=== PATIENT | female | born 1960 | race American Indian/Alaskan Native ===

== ENCOUNTER 2021-07-15 05:18 | Inpatient (IN) | payer OTHER ==
[2021-07-15] MEDS ORDERED: ASPIRIN 325 MG TAB PO ONE (05:58)
--- NOTE | 2021-07-15 06:28 | XRay Report ---
CHEST 2 VIEWS INDICATION / CLINICAL INFORMATION: chest painX SEVERAL DAYS. FINDINGS: SUPPORT DEVICES: None. HEART / MEDIASTINUM: No significant abnormality. LUNGS / PLEURA: No significant pulmonary or pleural abnormality. No pneumothorax. ADDITIONAL FINDINGS: No significant additional findings. IMPRESSION: 1. No acute findings. Signer Name: Tristian Estrada MD Signed: 07/15/2021 6:24 AM Workstation Name: [id number]
[2021-07-15] MEDS ORDERED: fentaNYL 100 MCG/2 ML INJ IV ONE (07:03)
[2021-07-15] MEDS ORDERED: ONDANSETRON 4 MG/2 ML INJ IV ONE (07:03)
[2021-07-15] MEDS ORDERED: NITROGLYCERIN 2% OINT 1 GM TP ONE (07:03)
--- NOTE | 2021-07-15 07:09 | Emergency Department Report ---
HPI - General Chief Complaint: Chest Pain Time Seen by Provider: 07/15/21 06:53 - [facility] HPI: Waiting Chair 2 The patient is a 61-year-old female present with chief complaint of chest pain. Patient states her pain began yesterday and was initially and intermittent pressing pain but today has become constant. Patient denies shortness of breath but admits to nausea without vomiting and diaphoresis with her chest pain. The patient went to an urgent care facility yesterday and was diagnosed with GERD but states her symptoms persist. Patient currently gets her chest pressure a score of 9/10. Patient states her last stress test occurred over 5 years ago but she has never had a cardiac catheterization ED Past Medical Hx - Past Medical History Previous Medical History?: No Hx Hypertension: Yes Hx Diabetes: Yes Additional medical history: Hypercholesterolemia, hypothyroidism - Surgical History Past Surgical History?: No Additional Surgical History: Thyroidectomy - Family History Family history: no significant - Social History Smoking Status: Former Smoker (None x3 weeks) Substance Use Type: None (Denies illicit drug use) ED Review of Systems ROS: Stated complaint: CHEST PAIN Other details as noted in HPI Constitutional: diaphoresis Eyes: denies: eye pain ENT: denies: throat pain Respiratory: denies: shortness of breath Cardiovascular: chest pain Endocrine: no symptoms reported Gastrointestinal: nausea. denies: vomiting Musculoskeletal: back pain Neurological: denies: headache Physical Exam - Physical Exam Vital Signs: Vital Signs 07/15/21 05:30 Temperature 98.7 F Pulse Rate 101 H Respiratory 18 Rate Blood Pressure 138/70 O2 Sat by Pulse 99 Oximetry Physical Exam: GENERAL: The patient is well-developed well-nourished female sitting in chair not appearing to be in acute distress. [] HEENT: Normocephalic. Atraumatic. Extraocular motions are intact. Patient has moist mucous membranes. NECK: Supple. Trachea midline CHEST/LUNGS: Clear to auscultation. There is no respiratory distress noted. HEART/CARDIOVASCULAR: Regular. There is no tachycardia. There is no gallop rub or murmur. ABDOMEN: Abdomen is soft, nontender. Patient has normal bowel sounds. There is no abdominal distention. SKIN: There is no rash. There is no edema. There is no diaphoresis. NEURO: The patient is awake, alert, and oriented. The patient is cooperative. The patient has no focal neurologic deficits. The patient has normal speech. GCS 15 MUSCULOSKELETAL: There is no evidence of acute injury. ED Course Vital Signs 07/15/21 05:30 Temperature 98.7 F Pulse Rate 101 H Respiratory 18 Rate Blood Pressure 138/70 O2 Sat by Pulse 99 Oximetry - Consultations Consultation #1: 07/15/21 07:46 Cardiology paged 07/15/21 09:18 No call back as of 09:18 ED Medical Decision Making - Lab Data Result diagrams: 07/15/21 06:46 07/15/21 06:46 Laboratory Tests 07/15/21 07/15/21 06:46 06:46 WBC 12.2 H RBC 4.81 Hgb 13.5 Hct 41.0 MCV 85 MCH 28 MCHC 33 RDW 14.1 Plt Count 249 Lymph % (Auto) 19.7 [place] % (Auto) 4.7 Eos % (Auto) 0.2 Baso % (Auto) 0.4 Lymph # (Auto) 2.4 [place] # (Auto) 0.6 Eos # (Auto) 0.0 Baso # (Auto) 0.0 Seg Neutrophils % 75.0 H Seg Neutrophils # 9.1 H Sodium 138 Potassium 3.6 Chloride 96.8 L Carbon Dioxide 25 Anion Gap 20 BUN 6 L Creatinine 0.5 L Estimated GFR > 60 BUN/Creatinine Ratio 12 Glucose 304 H Calcium 9.8 Total Bilirubin 0.40 AST 22 ALT 10 Alkaline Phosphatase 129 Troponin T 0.107 H* Total Protein 7.6 Albumin 4.5 Albumin/Globulin Ratio 1.5 Triglycerides 131 Cholesterol 211 H LDL Cholesterol Direct 155 H HDL Cholesterol 40 Cholesterol/HDL Ratio 5.27 - EKG Data -: EKG Interpreted by Wi EKG shows normal: sinus rhythm Rate: tachycardia - EKG Data When compared to previous EKG there are: previous EKG unavailable Interpretation: other (No ischemic changes seen) - Differential Diagnosis ACS, pericarditis, GERD Critical care attestation.: If time is entered above; I have spent that time in minutes in the direct care of this critically ill patient, excluding procedure time. ED Disposition Clinical Impression: NSTEMI (non-ST elevated myocardial infarction), Chest pain Disposition: ADMITTED INPATIENT Is pt being admited?: Yes Does the pt Need Aspirin: Yes Condition: Serious Instructions: Nonspecific Chest Pain, Adult Time of Disposition: 08:12 (Hospitalist notified (Dr. Sandoval)) Heart Score - HEART Score History: Moderately suspicious EKG: Normal Age: 45-65 Risk factors: > 3 risk factors or hx of atherosclerotic disease Troponin: > 3x normal limit HEART Score: 6 - EKG Read Time Time EKG Completed: 06:09 EKG Read Time: 06:10
[2021-07-15 07:10] LABS: Basophils % (Auto) 0.4 % (0.0-1.8); Eosinophils % (Auto) 0.2 % (0.0-4.3); Hemoglobin 13.5 gm/dl (10.1-14.3); Lymphocytes # (Auto) 2.4 K/mm3 (1.2-5.4); Lymphocytes % (Auto) 19.7 % (13.4-35.0); Mean Corpuscular HGB Conc 33 % (30-34); Mean Corpuscular Volume 85 fl (79-97); Monocytes # (Auto) 0.6 K/mm3 (0.0-0.8); Monocytes % (Auto) 4.7 % (0.0-7.3); Platelet Count 249 K/mm3 (140-440); Red Blood Count 4.81 M/mm3 (3.65-5.03); Red Cell Distribution Width 14.1 % (13.2-15.2)
[2021-07-15 07:36] LABS: Alanine Aminotransferase 10 units/L (7-56); Albumin 4.5 g/dL (3.9-5); BUN/Creatinine Ratio 12; Blood Urea Nitrogen 6 mg/dL (7-17); Calcium 9.8 mg/dL (8.4-10.2); Hemolysis Index 9
[2021-07-15] MEDS ORDERED: HEPARIN 10,000 UNITS/10 ML VIAL IV ONE (07:39)
[2021-07-15] MEDS ORDERED: HEPARIN 10,000 UNITS/10 ML VIAL IV PRN ×2 (07:39→10:00)
[2021-07-15 07:52] LABS: Chol/HDL Ratio 5.27 %; HDL Cholesterol 40 mg/dL (40-59); LDL Cholesterol,Direct 155 mg/dL (50-130)
[2021-07-15] MEDS ORDERED: HEPARIN/ 0.45% NACL DRIP 25,000 UNIT/500 ML BAG IV SCH (08:00)
--- NOTE | 2021-07-15 08:35 | Electrocardiograph Report ---
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
[2021-07-15 09:38] LABS: Hematocrit 40.6 % (30.3-42.9); Hemoglobin 13.6 gm/dl (10.1-14.3)
[2021-07-15 09:39] LABS: INR 0.96 (0.87-1.13)
[2021-07-15 09:40] LABS: Partial Thromboplastin Time 38.8 Sec. (24.2-36.6)
[2021-07-15] MEDS ORDERED: HYDROmorphone 1 MG/1 ML INJ ONE (09:52)
[2021-07-15] MEDS ORDERED: HYDROmorphone 2 MG/1 ML INJ IV SCH (10:00)
[2021-07-15] MEDS ORDERED: NITROGLYCERIN DRIP 50 MG/250 ML BOTTLE IV SCH (10:30)
--- NOTE | 2021-07-15 11:46 | Consultation ---
History of Present Illness - Reason for Consult Consult date: 07/15/21 Critical Care - History of Present Illness 61 y/o female admitted with NSTEMI, found to have 100% occluded circ but also so me other vascular occlusions requiring Vascular surgery consultation. Medications and Allergies Allergies Allergy/AdvReac Type Severity Reaction Status Date / Time No Known Allergies Allergy Verified 07/15/21 05:28 Active Meds: Active Medications Heparin Sodium (Porcine) (Heparin 10,000 Units/10 Ml Vial) 4,000 unit IV Q6H PRN PRN Reason: Anti-Xa Assay<0.1 units/ml Hydromorphone HCl (Hydromorphone 2 Mg/1 Ml Inj) 1 mg IV ONCE@1000 MONICA Stop: 07/15/21 14:00 Last Admin: 07/15/21 10:22 Dose: 1 mg Documented by: Heparin Sodium/Sodium Chloride (Heparin/ 0.45% Nacl-25,000 Unit/500 Ml) 25,000 unit in 500 mls @ 20 mls/hr IV TITRATE MONICA; Protocol Last Admin: 07/15/21 11:20 Dose: 1,000 units/hr, 20 mls/hr Documented by: Nitroglycerin/Dextrose (Tridil Drip 50mg/250ml) 50 mg in 250 mls @ 3 mls/hr IV TITR MONICA Exam - Constitutional Vitals: Temp Pulse Resp BP Pulse Ox 98.7 F 91 H 24 151/70 98 07/15/21 05:30 07/15/21 10:39 07/15/21 10:39 07/15/21 11:01 07/15/21 11:01 Results - Labs CBC & Chem 7: 07/16/21 04:14 07/16/21 04:14 Labs: Abnormal lab results 07/15/21 07/15/21 07/15/21 Range/Units 06:46 06:46 08:41 WBC 12.2 H (4.5-11.0) K/mm3 Seg Neutrophils % 75.0 H (40.0-70.0) % Seg Neutrophils # 9.1 H (1.8-7.7) K/mm3 APTT (24.2-36.6) Sec. Chloride 96.8 L (98-107) mmol/L BUN 6 L (7-17) mg/dL Creatinine 0.5 L (0.6-1.2) mg/dL Glucose 304 H (65-100) mg/dL Troponin T 0.107 H* 0.078 H D (0.00-0.029) ng/mL Cholesterol 211 H (50-199) mg/dL LDL Cholesterol Direct 155 H (50-130) mg/dL 07/15/21 Range/Units 08:41 WBC (4.5-11.0) K/mm3 Seg Neutrophils % (40.0-70.0) % Seg Neutrophils # (1.8-7.7) K/mm3 APTT 38.8 H (24.2-36.6) Sec. Chloride (98-107) mmol/L BUN (7-17) mg/dL Creatinine (0.6-1.2) mg/dL Glucose (65-100) mg/dL Troponin T (0.00-0.029) ng/mL Cholesterol (50-199) mg/dL LDL Cholesterol Direct (50-130) mg/dL Assessment and Plan 61 y/o female with CAD and vascular disease Goal directed therapy Follow up cardiology recs post stent placement Follow up vascular surgery recs.
[2021-07-15] MEDS ORDERED: HEPARIN 10,000 UNITS/10 ML VIAL ONE (12:07)
--- NOTE | 2021-07-15 12:38 | Consultation ---
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 She has a history of hypertension, diabetes and tobacco abuse, which she states she quit 3 weeks ago. There is no prior cardiac history. Yesterday, she developed pain in her substernal area, radiating to the throat and the upper back, and went to the urgent care center where she was initially treated for gastroesophageal reflux. On getting home, symptoms did not subside and continued to get worse, prompting her presentation to the emergency room. ECG in the emergency room was sinus with nonspecific ST changes, no acute ischemic findings. However her troponin levels were elevated at 0.10, trending down to 0.07. Chest x-ray showed a normal-sized cardiac silhouette and clear l ungs. Patient is still in the emergency room during evaluation, comfortable in no acute distress, but reports that she still has ongoing intermittent chest discomfort. Past History Past Medical History: diabetes, hypertension, other (Tobacco abuse) Medications and Allergies Allergies Allergy/AdvReac Type Severity Reaction Status Date / Time No Known Allergies Allergy Verified 07/15/21 05:28 Active Meds: Active Medications Heparin Sodium (Porcine) (Heparin 10,000 Units/10 Ml Vial) 4,000 unit IV Q6H PRN PRN Reason: Anti-Xa Assay<0.1 units/ml Hydromorphone HCl (Hydromorphone 2 Mg/1 Ml Inj) 1 mg IV ONCE@1000 MONICA Stop: 07/15/21 14:00 Last Admin: 07/15/21 10:22 Dose: 1 mg Documented by: Heparin Sodium/Sodium Chloride (Heparin/ 0.45% Nacl-25,000 Unit/500 Ml) 25,000 unit in 500 mls @ 20 mls/hr IV TITRATE MONICA; Protocol Last Admin: 07/15/21 11:20 Dose: 1,000 units/hr, 20 mls/hr Documented by: Nitroglycerin/Dextrose (Tridil Drip 50mg/250ml) 50 mg in 250 mls @ 3 mls/hr IV TITR MONICA Last Admin: 07/15/21 12:03 Dose: 10 mcg/min, 3 mls/hr Documented by: Review of Systems Cardiovascular: chest pain, shortness of breath, no orthopnea, no palpitations, no rapid/irregular heart beat, no edema, no syncope, no lightheadedness Physical Examination Vital Signs Temp Pulse Resp BP Pulse Ox 98.7 F 101 H 18 138/70 99 07/15/21 05:30 07/15/21 05:30 07/15/21 05:30 07/15/21 05:30 07/15/21 05:30 General appearance: no acute distress HEENT: Positive: PERRL Neck: Positive: neck supple Cardiac: Positive: Reg Rate and Rhythm Lungs: Positive: Decreased Breath Sounds Neuro: Positive: Grossly Intact Abdomen: Positive: Soft Female genitourinary: deferred Skin: Positive: Clear Extremities: Absent: edema Results 07/15/21 08:41 07/15/21 06:46 Cardiac Enzymes 07/15/21 Range/Units 06:46 AST 22 (5-40) units/L Coagulation 07/15/21 Range/Units 08:41 PT 13.3 (12.2-14.9) Sec. INR 0.96 (0.87-1.13) APTT 38.8 H (24.2-36.6) Sec. Lipids 07/15/21 Range/Units 06:46 Triglycerides 131 (2-149) mg/dL Cholesterol 211 H (50-199) mg/dL HDL Cholesterol 40 (40-59) mg/dL Cholesterol/HDL Ratio 5.27 % CBC 07/15/21 07/15/21 Range/Units 06:46 08:41 WBC 12.2 H (4.5-11.0) K/mm3 RBC 4.81 (3.65-5.03) M/mm3 Hgb 13.5 13.6 (10.1-14.3) gm/dl Hct 41.0 40.6 (30.3-42.9) % Plt Count 249 235 (140-440) K/mm3 Lymph # (Auto) 2.4 (1.2-5.4) K/mm3 [place] # (Auto) 0.6 (0.0-0.8) K/mm3 Eos # (Auto) 0.0 (0.0-0.4) K/mm3 Baso # (Auto) 0.0 (0.0-0.1) K/mm3 Comprehensive Metabolic Panel 07/15/21 Range/Units 06:46 Sodium 138 (137-145) mmol/L Potassium 3.6 (3.6-5.0) mmol/L Chloride 96.8 L (98-107) mmol/L Carbon Dioxide 25 (22-30) mmol/L BUN 6 L (7-17) mg/dL Creatinine 0.5 L (0.6-1.2) mg/dL Glucose 304 H (65-100) mg/dL Calcium 9.8 (8.4-10.2) mg/dL AST 22 (5-40) units/L ALT 10 (7-56) units/L Alkaline Phosphatase 129 (35-129) units/L Total Protein 7.6 (6.3-8.2) g/dL Albumin 4.5 (3.9-5) g/dL EKG interpretations - Telemetry EKG Rhythm: Sinus Tachycardia (With nonspecific ST changes) Assessment and Plan - Patient Problems (1) Acute coronary syndrome Current Visit: Yes Status: Acute Plan to address problem: Patient with multiple coronary risk factors, presents with chest pain and elevated troponin levels, suggestive of acute coronary syndrome. She was started on intravenous heparin in the emergency room, treated with aspirin, we will add intravenous nitroglycerin, beta-blockers and statin. Due to recurrent and ongoing chest pain in the hospital, we will proceed with early diagnostic coronary angiography. Risks and benefits of diagnostic coronary geography discussed with the patient and she consents to proceed.
[2021-07-15] MEDS ORDERED: SODIUM CHLORIDE 0.9% 500 ML 500 ML ONE (12:41)
[2021-07-15] MEDS: HEPARIN/NS 5000 UNIT/500ML 1,000 ML IR ONE ×2 (13:06→13:21)
[2021-07-15] MEDS: NITROGLYCERIN SYRINGE 3 ML ONE ×2 (13:07→13:21)
[2021-07-15] MEDS: VERAPAMIL 5 MG/2 ML INJ ONE ×2 (13:08→13:21)
[2021-07-15] MEDS: LIDOCAINE (2%) 20 MG/1 ML VIAL 20 ML MDV INFILTRATI ONE ×2 (13:20→13:26)
[2021-07-15] MEDS ORDERED: MIDAZOLAM 2 MG/2 ML INJ ONE (13:29)
[2021-07-15] MEDS ORDERED: TIROFIBAN/NS 12,500 MCG/250 ML BAG IV ONE (13:33)
[2021-07-15] MEDS ORDERED: HEPARIN/NS 5000 UNIT/500ML 500 ML IR ONE (13:35)
[2021-07-15] MEDS ORDERED: TICAGRELOR 90 MG TAB ONE (13:57)
[2021-07-15] MEDS ORDERED: ALUM-MAG HYDROXIDE-SIMETHICONE 200-200-20MG/5ML ORAL LIQD 30 ML ONE (13:58)
[2021-07-15] MEDS ORDERED: DEXTROSE 50% IN WATER (25GM) 50 ML SYRINGE IV PRN (14:00)
[2021-07-15] MEDS ORDERED: ACETAMINOPHEN 325 MG TAB PO PRN (14:00)
[2021-07-15] MEDS ORDERED: HEPARIN 5,000 UNIT/1 ML VIAL SUB-Q SCH (14:00)
--- NOTE | 2021-07-15 14:27 | Cardiac Catherization Report ---
DATE OF SERVICE: 07/15/2021 REASON FOR PROCEDURE: The patient is a 61-year-old woman with hypertension, diabetes and tobacco abuse who presented with chest pain and elevated troponin levels consistent with a non-ST elevation myocardial infarction. Due to recurrent chest pain in the Emergency Room, we recommended early and immediate cardiac catheterization. Risks and benefits were discussed with the patient and she consented to proceed. PROCEDURES: 1. Left heart catheterization. 2. Selective left and right coronary angiography. 3. Angioplasty and stenting of the mid circumflex artery. 4. Sedation time start 1319, and end 1354. DESCRIPTION OF PROCEDURE: The patient was prepped and draped in a sterile fashion after informed consent. An initial entry into the right radial artery was aborted. We could not advance the guidewire from the right subclavian into the brachiocephalic trunk. We then turned our attention to the right femoral artery. A 6-Czech sheath was inserted into right femoral artery without difficulty. Selective left and right coronary angiography was performed using #3.5 left Jl and #4 right Jl. Angiograms were reviewed. CORONARY ANGIOGRAPHY: Left main coronary artery was free of significant disease. Left anterior descending artery and its diagonal branches contained mild luminal irregularities. Circumflex artery contained a 20% proximal stenosis. Following the mid obtuse marginal branch, the AV groove circumflex was completely occluded. This was the infarct related lesion, consistent with an acute or subacute occlusion. The right coronary artery was dominant, and contained mild luminal irregularities in its mid segment. CORONARY ANGIOPLASTY: We commenced coronary intervention. We chose a 3.5 XB guiding catheter and advanced to the left coronary ostium. A 0.014 inch Loader Operator 50 guidewire was then introduced into the circumflex, successfully across the lesional segment. Following wire placement, the vessel was predilated using a 3.0 mm balloon catheter. We then deployed a 3.5 x 22 mm drug-eluting stent, covering the entire lesional segment, which led to a large trifurcating terminal obtuse marginal. Following stenting, there was an excellent angiographic result, 0 residual stenosis and buddhist of JILLIAN 3 flow into the distal circumflex. Procedure was well tolerated by the patient and there were no complications. The catheters and wires were removed, sheath removed. Hemostasis of the femoral site established using an Angio-Seal device and at the radial site using a TR band. The patient was returned to the postprocedure unit in stable condition. CONCLUSION: 1. Acute non-ST elevation myocardial infarction, prompting early diagnostic angiography. 2. Coronary artery disease with 100% occlusion of the mid circumflex artery representing a subacute or acute coronary occlusion. 3. Successful angioplasty and stenting of the circumflex artery, buddhist of JILLIAN 3 flow with a 3.5 mm drug-eluting stent. RECOMMENDATIONS: The patient will be admitted on guideline-directed medical therapy including dual oral antiplatelet therapy with aspirin and ticagrelor. TID: [id number] RECEIPT: [id number] RUMA MTDD
[2021-07-15] MEDS ORDERED: oxyCODONE /ACETAMINOPHEN 5-325MG TAB PO PRN (14:30)
[2021-07-15] MEDS ORDERED: ONDANSETRON 4 MG/2 ML INJ IV PRN (14:30)
[2021-07-15] MEDS ORDERED: SODIUM CHLORIDE 0.9% 1000 ML 1,000 ML IV SCH (14:30)
--- NOTE | 2021-07-15 14:33 | Event Note ---
Date: 07/15/21 Cardiac catheterization revealed 100% subacute occlusion of the circumflex in its mid segment, the infarct lesion. We performed successful angioplasty with deployment of a 3.5 mm coronary stent with excellent angiographic result and cheondoism of JILLIAN-3 flow. Patient will be admitted for post myocardial infarction management. Aggrastat infusion for 18 hours. Nitroglycerin infusion overnight, transition to isosorbide nitrate orally in the morning. Brilinta, baby aspirin, atorvastatin and metoprolol per guideline directed medic al management.
--- NOTE | 2021-07-15 14:37 | Event Note ---
Date: 07/15/21 Our initial attempt at catheterization via the right radial approach was unsuccessful due to apparent stenosis or occlusion of the brachiocephalic trunk. Catheterization and coronary intervention was performed successfully by the right femoral approach. We will request a vascular consultation for follow-up and possible future aldo gement of the brachiocephalic stenosis.
[2021-07-15] MEDS ORDERED: TIROFIBAN/NS 12,500 MCG/250 ML BAG IV SCH (15:00)
[2021-07-15] MEDS: INSULIN REGULAR, HUMAN 100 UNITS/1 ML SUB-Q SCH (16:27)
--- NOTE | 2021-07-15 16:37 | History and Physical Report ---
History of Present Illness Date of examination: 07/15/21 Date of admission: 07/15/21 08:10 Chief complaint: Chest pain History of present illness: The patient is a 61-year-old female with past medical history of hypertension, diabetes, hyperlipidemia, hypothyroidism (on levothyroxine), prior tobacco dependence, and morbid obesity who presented with 9 out of 10, substernal chest pain radiating to her back. Patient describes presenting to an urgent care on 07/14/2021 where she was diagnosed with presumably GERD. The patient was prescribed PPI and discharged home. The patient later presented to [facility] due to persistent pain preventing her from being able to sleep. In the ED the patient was evaluated and found to have a positive troponin of 0.107. The pa tient was initially provided ASA 325 mg and Nitropaste; however, the patient still continued to have irretractable chest pain. The patient denies shortness of breath, nausea, vomiting, abdominal pain, recent travel, use of new medications, prior history of pulmonary embolism, or trauma. The patient also denies any known coronavirus exposures. The patient was initiated on heparin drip for NSTEMI protocol. Cardiology was consulted. The patient is being admitted for management of acute coronary syndrome. Past History Past Medical History: diabetes, hypertension, hyperlipidemia, hypothyroidism, other (Tobacco abuse) Past Surgical History: , thyroidectomy Social history: lives with family, full code Family history: diabetes, hypertension Medications and Allergies Allergies Allergy/AdvReac Type Severity Reaction Status Date / Time No Known Allergies Allergy Verified 07/15/21 05:28 Active Meds: Active Medications Acetaminophen (Acetaminophen 325 Mg Tab) 650 mg PO Q4H PRN PRN Reason: Pain MILD(1-3)/Fever >100.5/CHING Aspirin (Aspirin Ec 81 Mg Tab) 81 mg PO QDAY MONICA Atorvastatin Calcium (Atorvastatin 40 Mg Tab) 40 mg PO QHS MONICA Dextrose (Dextrose 50% In Water (25gm) 50 Ml Syringe) 50 ml IV Q30MIN PRN; Protocol PRN Reason: Hypoglycemia Heparin Sodium (Porcine) (Heparin 5,000 Unit/1 Ml Vial) 5,000 unit SUB-Q Q8HR MONICA Nitroglycerin/Dextrose (Tridil Drip 50mg/250ml) 50 mg in 250 mls @ 3 mls/hr IV TITR MONICA Last Admin: 07/15/21 12:03 Dose: 10 mcg/min, 3 mls/hr Documented by: Sodium Chloride (Nacl 0.9% 1000 Ml) 1,000 mls @ 100 mls/hr IV DIRECT MONICA Stop: 07/16/21 00:29 Tirofiban/Sodium Chloride (Aggrastat Drip (12.5 Mg/250 Ml)) 12,500 mcg in 250 mls @ 0 mls/hr IV DIRECT MONICA; Protocol Stop: 07/16/21 08:59 Insulin Human Regular (Insulin Regular, Human 100 Units/1 Ml) 0 units SUB-Q Q6H MONICA; Protocol Last Admin: 07/15/21 16:27 Dose: Not Given Documented by: Losartan Potassium (Losartan 50 Mg Tab) 50 mg PO QDAY MONICA Metoprolol Tartrate (Metoprolol Tartrate 50 Mg Tab) 50 mg PO BID MONICA Ondansetron HCl (Ondansetron 4 Mg/2 Ml Inj) 4 mg IV Q8HR PRN PRN Reason: Nausea And Vomiting Oxycodone/Acetaminophen (Oxycodone /Acetaminophen 5-325mg Tab) 1 tab PO Q6H PRN PRN Reason: Pain, Moderate (4-6) Senna (Sennosides 8.6 Mg Tab) 8.6 mg PO Q12HR MONICA Sodium Chloride (Sodium Chloride 0.9% 10 Ml Flush Syringe) 10 ml IV BID MONICA Sodium Chloride (Sodium Chloride 0.9% 10 Ml Flush Syringe) 10 ml IV PRN PRN PRN Reason: LINE FLUSH Ticagrelor (Ticagrelor 90 Mg Tab) 90 mg PO BID MONICA Review of Systems All systems: negative Exam - Constitutional Vitals: Temp Pulse Resp BP Pulse Ox 98 F 72 18 107/74 94 07/15/21 14:34 07/15/21 15:30 07/15/21 15:30 07/15/21 15:30 07/15/21 15:30 General appearance: Present: severe distress - EENT Eyes: Present: PERRL, EOM intact ENT: hearing intact, clear oral mucosa, dentition normal - Neck Neck: Present: supple, normal ROM - Respiratory Respiratory effort: normal - Cardiovascular Rhythm: regular Heart Sounds: Present: S1 & S2 - Extremities Extremities: no ischemia, pulses intact, pulses symmetrical, No edema, normal temperature, normal color - Abdominal General gastrointestinal: Present: soft, non-tender, non-distended, normal bowel sounds Female genitourinary: Present: deferred - Rectal Rectal Exam: deferred - Integumentary Integumentary: Present: clear, warm, dry - Musculoskeletal Musculoskeletal: strength equal bilaterally - Psychiatric Psychiatric: appropriate mood/affect, intact judgment & insight, memory intact, cooperative - Neurologic Neurologic: CNII-XII intact, moves all extremities - Allied Health Allied health notes reviewed: nursing HEART Score - HEART Score History: Highly suspicious EKG: Normal Age: 45-65 Risk factors: > 3 risk factors or hx of atherosclerotic disease Troponin: Troponin T 0.078 ng/mL (0.00-0.029) H D 07/15/21 08:41 Troponin: > 3x normal limit HEART Score: 7 - Critical Actions Critical Actions: >7 pts:50-65% risk of adverse cardiac event. Early invasive measures Results - Labs CBC & Chem 7: 07/15/21 08:41 07/15/21 06:46 Labs: Laboratory Last Values WBC 12.2 K/mm3 (4.5-11.0) H 07/15/21 06:46 RBC 4.81 M/mm3 (3.65-5.03) 07/15/21 06:46 Hgb 13.6 gm/dl (10.1-14.3) 07/15/21 08:41 Hct 40.6 % (30.3-42.9) 07/15/21 08:41 MCV 85 fl (79-97) 07/15/21 06:46 MCH 28 pg (28-32) 07/15/21 06:46 MCHC 33 % (30-34) 07/15/21 06:46 RDW 14.1 % (13.2-15.2) 07/15/21 06:46 Plt Count 235 K/mm3 (140-440) 07/15/21 08:41 Lymph % (Auto) 19.7 % (13.4-35.0) 07/15/21 06:46 [place] % (Auto) 4.7 % (0.0-7.3) 07/15/21 06:46 Eos % (Auto) 0.2 % (0.0-4.3) 07/15/21 06:46 Baso % (Auto) 0.4 % (0.0-1.8) 07/15/21 06:46 Lymph # (Auto) 2.4 K/mm3 (1.2-5.4) 07/15/21 06:46 [place] # (Auto) 0.6 K/mm3 (0.0-0.8) 07/15/21 06:46 Eos # (Auto) 0.0 K/mm3 (0.0-0.4) 07/15/21 06:46 Baso # (Auto) 0.0 K/mm3 (0.0-0.1) 07/15/21 06:46 Seg Neutrophils % 75.0 % (40.0-70.0) H 07/15/21 06:46 Seg Neutrophils # 9.1 K/mm3 (1.8-7.7) H 07/15/21 06:46 PT 13.3 Sec. (12.2-14.9) 07/15/21 08:41 INR 0.96 (0.87-1.13) 07/15/21 08:41 APTT 38.8 Sec. (24.2-36.6) H 07/15/21 08:41 Sodium 138 mmol/L (137-145) 07/15/21 06:46 Potassium 3.6 mmol/L (3.6-5.0) 07/15/21 06:46 Chloride 96.8 mmol/L (98-107) L 07/15/21 06:46 Carbon Dioxide 25 mmol/L (22-30) 07/15/21 06:46 Anion Gap 20 mmol/L 07/15/21 06:46 BUN 6 mg/dL (7-17) L 07/15/21 06:46 Creatinine 0.5 mg/dL (0.6-1.2) L 07/15/21 06:46 Estimated GFR > 60 ml/min 07/15/21 06:46 BUN/Creatinine Ratio 12 % 07/15/21 06:46 Glucose 304 mg/dL (65-100) H 07/15/21 06:46 Calcium 9.8 mg/dL (8.4-10.2) 07/15/21 06:46 Total Bilirubin 0.40 mg/dL (0.1-1.2) 07/15/21 06:46 AST 22 units/L (5-40) 07/15/21 06:46 ALT 10 units/L (7-56) 07/15/21 06:46 Alkaline Phosphatase 129 units/L (35-129) 07/15/21 06:46 Troponin T 0.078 ng/mL (0.00-0.029) H D 07/15/21 08:41 Total Protein 7.6 g/dL (6.3-8.2) 07/15/21 06:46 Albumin 4.5 g/dL (3.9-5) 07/15/21 06:46 Albumin/Globulin Ratio 1.5 % 07/15/21 06:46 Triglycerides 131 mg/dL (2-149) 07/15/21 06:46 Cholesterol 211 mg/dL (50-199) H 07/15/21 06:46 LDL Cholesterol Direct 155 mg/dL (50-130) H 07/15/21 06:46 HDL Cholesterol 40 mg/dL (40-59) 07/15/21 06:46 Cholesterol/HDL Ratio 5.27 % 07/15/21 06:46 Assessment and Plan Assessment and plan: The patient is a 61-year-old female with past medical history of hypertension, diabetes, hyperlipidemia, hypothyroidism on levothyroxine, and morbid obesity who presented with acute chest pain that was admitted for management of ACS (acute coronary syndrome). #Acute coronary syndrome #NSTEMI -S/p ASA 325 mg and Nitropaste in the ED -Troponin 0 0.107 -EKG significant for sinus tachycardia -Patient still endorsing 9/10 chest pain with pressure -Cardiology consulted; appreciate recs. -Patient underwent left heart catheterization (07/15/2021) and found to have 100% subacute occlusion of mid circumflex requiring stent. -Continue Aggrastat infusion for 18 hours and nitroglycerin infusion overnight (per cardiology) -Continue Brilinta 90 mg twice daily, ASA 81 mg daily, atorvastatin 40 mg daily, and metoprolol tartrate 50 mg twice daily -We will continue to monitor #Hypertension -Patient currently normotensive -Will restart home antihypertensives as needed #Type 2 diabetes mellitus -Pending hemoglobin A1c -Initiating moderate SSI -Starting cardiac/diabetic diet #Hyperlipidemia -Continue atorvastatin 40 mg daily #Hypothyroidism -Continue home levothyroxine #Morbid obesity #Exercise counseling -BMI 42 -Counseled patient on weight loss, dietary changes, incorporating exercise, and overall lifestyle changes. Patient expressed understanding. -Time: +15 minutes Advance Directives: No VTE prophylaxis?: Chemical Plan of care discussed with patient/family: Yes
[2021-07-15] MEDS: LOSARTAN 50 MG TAB PO SCH (18:35)
[2021-07-15] MEDS: METOPROLOL TARTRATE 50 MG TAB PO SCH ×2 (18:36→23:27)
--- NOTE | 2021-07-15 22:56 | Event Note ---
Date: 07/15/21 Reviewed angiogram. 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 Recommend CT angiogram at least 24 hours from contrast bolus as there is no need to put patient at risk for BAILEY secondary to evaluation of this chronic issue.
[2021-07-15] MEDS: SENNOSIDES 8.6 MG TAB PO SCH (23:28)
[2021-07-16] MEDS: INSULIN REGULAR, HUMAN 100 UNITS/1 ML SUB-Q SCH ×5 (00:39→21:33)
--- NOTE | 2021-07-16 03:15 | XRay Report ---
CHEST 1 VIEW 07/16/2021 2:35 AM INDICATION / CLINICAL INFORMATION: post pci. COMPARISON: Chest x-ray 07/15/2021 FINDINGS: SUPPORT DEVICES: None. HEART / MEDIASTINUM: No significant abnormality. LUNGS / PLEURA: Mild streaky bilateral parenchymal disease could represent atelectasis or early pneum onia No pneumothorax. ADDITIONAL FINDINGS: No significant additional findings. IMPRESSION: 1. Probable mild bilateral early pneumonia Signer Name: Pito Mohamud MD Signed: 07/16/2021 3:11 AM Workstation Name: [id number]
[2021-07-16 04:58] LABS: Basophils # (Auto) 0.1 K/mm3 (0.0-0.1); Basophils % (Auto) 0.4 % (0.0-1.8); Eosinophils # (Auto) 0.1 K/mm3 (0.0-0.4); Eosinophils % (Auto) 0.9 % (0.0-4.3); Hemoglobin 12.3 gm/dl (10.1-14.3); Lymphocytes # (Auto) 4.4 K/mm3 (1.2-5.4); Lymphocytes % (Auto) 28.7 % (13.4-35.0); Mean Corpuscular HGB Conc 33 % (30-34); Mean Corpuscular Volume 85 fl (79-97); Monocytes # (Auto) 1.3 K/mm3 (0.0-0.8); Monocytes % (Auto) 8.8 % (0.0-7.3); Platelet Count 243 K/mm3 (140-440); Red Blood Count 4.33 M/mm3 (3.65-5.03)
[2021-07-16 05:38] LABS: Blood Urea Nitrogen 7 mg/dL (7-17); Calcium 8.8 mg/dL (8.4-10.2); Hemolysis Index 18
[2021-07-16 05:49] LABS: BUN/Creatinine Ratio 12
[2021-07-16] MEDS: TICAGRELOR 90 MG TAB PO SCH ×2 (09:37→21:24)
[2021-07-16] MEDS: ASPIRIN EC 81 MG TAB PO SCH (09:37)
[2021-07-16] MEDS: LOSARTAN 50 MG TAB PO SCH (09:37)
[2021-07-16] MEDS ORDERED: METOPROLOL TARTRATE 100 MG TAB PO SCH (10:00)
[2021-07-16] MEDS ORDERED: ASPIRIN EC 325 MG TAB PO SCH ×2 (10:00)
[2021-07-16] MEDS ORDERED: POTASSIUM CHLORIDE ER 20 MEQ TAB PO SCH (10:00)
[2021-07-16] MEDS: SENNOSIDES 8.6 MG TAB PO SCH ×2 (10:08→21:24)
[2021-07-16] MEDS: PANTOPRAZOLE 40 MG TAB PO SCH (10:12)
[2021-07-16] MEDS: METOPROLOL TARTRATE 25 MG TAB PO SCH ×2 (10:31→21:23)
--- NOTE | 2021-07-16 10:44 | Progress Note ---
Assessment and Plan - Patient Problems (1) Acute coronary syndrome Current Visit: Yes Status: Acute Plan to address problem: Patient presented with a non-ST elevation myocardial infarction, manifested by normal EKG and elevated troponin levels, cardiac catheterization revealed 100% occlusion of the circumflex artery, treated with immediate angioplasty and deployment of a 3.5 mm drug-eluting stent. Patient is chest pain-free, looks and feels better, tolerating guideline directed medical therapy. Aggrastat and intravenous nitroglycerin have been discontinued. We will start Imdur 30 mg and increase metoprolol 75 mg twice daily. The patient is stable for transfer to the telemetry unit, anticipated discharge tomorrow from a cardiac standpoint. Discharge medication should include aspirin 81 mg, ticagrelor 90 mg twice daily, atorvastatin 40 mg daily and losartan 50 mg daily. On discharge she should follow-up in my office in 7 days. 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 We will sign off and follow on a as needed basis. Subjective Date of service: 07/16/21 Interval history: Patient looks and feels better, chest pain has resolved, she is stable sinus rhythm with stable hemodynamics. Objective Vital Signs Temp Pulse Resp BP Pulse Ox 07/16/21 10:31 82 142/71 07/16/21 10:12 82 142/71 07/16/21 09:37 87 138/60 07/16/21 07:52 98.8 F 07/16/21 06:00 86 100 07/16/21 02:45 98.4 F 07/16/21 02:20 90 07/16/21 02:00 100 07/15/21 23:48 98.9 F 07/15/21 23:27 103 H 136/70 07/15/21 22:20 107 H 07/15/21 22:18 100 07/15/21 19:36 99.2 F 07/15/21 18:35 73 149/64 07/15/21 18:20 91 H 07/15/21 18:00 73 20 128/69 96 07/15/21 17:00 78 18 109/69 99 07/15/21 16:00 71 19 120/63 94 07/15/21 15:30 72 18 107/74 94 07/15/21 15:15 68 20 95/68 94 07/15/21 15:00 73 20 119/83 96 07/15/21 14:45 73 20 129/78 94 07/15/21 14:34 98 F 73 20 122/62 91 07/15/21 11:30 97 07/15/21 11:01 151/70 98 - Physical Examination General: No Apparent Distress HEENT: Positive: PERRL Neck: Positive: neck supple Cardiac: Positive: Reg Rate and Rhythm Lungs: Positive: Decreased Breath Sounds Neuro: Positive: Grossly Intact Abdomen: Positive: Soft Skin: Positive: Clear Extremities: Absent: edema - Labs and Meds CBC 07/16/21 Range/Units 04:14 WBC 15.3 H (4.5-11.0) K/mm3 RBC 4.33 (3.65-5.03) M/mm3 Hgb 12.3 (10.1-14.3) gm/dl Hct 37.0 (30.3-42.9) % Plt Count 243 (140-440) K/mm3 Lymph # (Auto) 4.4 (1.2-5.4) K/mm3 [place] # (Auto) 1.3 H (0.0-0.8) K/mm3 Eos # (Auto) 0.1 (0.0-0.4) K/mm3 Baso # (Auto) 0.1 (0.0-0.1) K/mm3 Comprehensive Metabolic Panel 07/16/21 Range/Units 04:14 Sodium 139 (137-145) mmol/L Potassium 3.1 L (3.6-5.0) mmol/L Chloride 101.6 (98-107) mmol/L Carbon Dioxide 23 (22-30) mmol/L BUN 7 (7-17) mg/dL Creatinine 0.6 (0.6-1.2) mg/dL Glucose 259 H (65-100) mg/dL Calcium 8.8 (8.4-10.2) mg/dL
--- NOTE | 2021-07-16 11:32 | Progress Note ---
Assessment and Plan Assessment and plan: The patient is a 61-year-old female with past medical history of hypertension, diabetes, hyperlipidemia, hypothyroidism on levothyroxine, and morbid obesity who presented with acute chest pain that was admitted for management of ACS (acute coronary syndrome). #NSTEMI #Acute coronary syndrome #Stented coronary artery #Coronary artery disease -S/p ASA 325 mg and Nitropaste in the ED -Troponin 0 0.107 -EKG significant for sinus tachycardia -Cardiology consulted; appreciate recs. -Patient underwent left heart catheterization (07/15/2021) and found to have 100% subacute occlusion of mid circumflex requiring 1 stent. -Discontinue Aggrastat infusion for 18 hours and nitroglycerin infusion (per cardiology). -Continue Brilinta 90 mg twice daily, ASA 81 mg daily, atorvastatin 40 mg daily. Increased metoprolol tartrate from 50 mg to 75 mg twice daily. -Starting Imdur 30 mg daily. -Patient will follow up with cardiology in clinic 1 week after discharge. #Hypertension -Patient currently normotensive -Continue home antihypertensives as needed #Type 2 diabetes mellitus -Pending hemoglobin A1c -Continue moderate SSI -Starting cardiac/diabetic diet #Hyperlipidemia -Continue atorvastatin 40 mg daily #Hypothyroidism -Continue home levothyroxine #Morbid obesity #Exercise counseling -BMI 42 -Counseled patient on weight loss, dietary changes, incorporating exercise, and overall lifestyle changes. Patient expressed understanding. -Time: +15 minutes Disposition Plan: Possible discharge tomorrow. Total Time Spent with Patient (Minutes): 35 History Interval history: The patient underwent left heart catheterization with placement of 1 stent. Patient tolerated the procedure well without complications. Hospitalist Physical - Constitutional Vitals: Temp Pulse Resp BP Pulse Ox 98.8 F 82 20 142/71 100 07/16/21 07:52 07/16/21 10:31 07/15/21 18:00 07/16/21 10:31 07/16/21 06:00 General appearance: Present: no acute distress, well-nourished, obese - EENT Eyes: Present: PERRL, EOM intact ENT: hearing intact, clear oral mucosa, dentition normal - Neck Neck: Present: supple, normal ROM - Respiratory Respiratory effort: normal - Cardiovascular Rhythm: regular Heart Sounds: Present: S1 & S2 - Extremities Extremities: no ischemia, pulses intact, pulses symmetrical, No edema, normal temperature, normal color Extremity abnormal: tenderness (Tenderness of right groin at site of left heart cath entry) Peripheral Pulses: within normal limits - Abdominal General gastrointestinal: soft, non-tender, non-distended, normal bowel sounds - Integumentary Integumentary: Present: clear, warm, dry - Psychiatric Psychiatric: appropriate mood/affect, intact judgment & insight, memory intact, cooperative - Neurologic Neurologic: CNII-XII intact, moves all extremities - Allied Health Allied health notes reviewed: nursing HEART Score - HEART Score EKG: Normal Age: 45-65 Risk factors: > 3 risk factors or hx of atherosclerotic disease Troponin: Troponin T 1.350 ng/mL (0.00-0.029) H* D 07/16/21 04:14 Troponin: > 3x normal limit - Critical Actions Critical Actions: >7 pts:50-65% risk of adverse cardiac event. Early invasive measures Results - Labs CBC & Chem 7: 07/16/21 04:14 07/16/21 04:14 Labs: Laboratory Last Values WBC 15.3 K/mm3 (4.5-11.0) H 07/16/21 04:14 RBC 4.33 M/mm3 (3.65-5.03) 07/16/21 04:14 Hgb 12.3 gm/dl (10.1-14.3) 07/16/21 04:14 Hct 37.0 % (30.3-42.9) 07/16/21 04:14 MCV 85 fl (79-97) 07/16/21 04:14 MCH 28 pg (28-32) 07/16/21 04:14 MCHC 33 % (30-34) 07/16/21 04:14 RDW 14.0 % (13.2-15.2) 07/16/21 04:14 Plt Count 243 K/mm3 (140-440) 07/16/21 04:14 Lymph % (Auto) 28.7 % (13.4-35.0) 07/16/21 04:14 [place] % (Auto) 8.8 % (0.0-7.3) H 07/16/21 04:14 Eos % (Auto) 0.9 % (0.0-4.3) 07/16/21 04:14 Baso % (Auto) 0.4 % (0.0-1.8) 07/16/21 04:14 Lymph # (Auto) 4.4 K/mm3 (1.2-5.4) 07/16/21 04:14 [place] # (Auto) 1.3 K/mm3 (0.0-0.8) H 07/16/21 04:14 Eos # (Auto) 0.1 K/mm3 (0.0-0.4) 07/16/21 04:14 Baso # (Auto) 0.1 K/mm3 (0.0-0.1) 07/16/21 04:14 Seg Neutrophils % 61.2 % (40.0-70.0) 07/16/21 04:14 Seg Neutrophils # 9.3 K/mm3 (1.8-7.7) H 07/16/21 04:14 PT 13.3 Sec. (12.2-14.9) 07/15/21 08:41 INR 0.96 (0.87-1.13) 07/15/21 08:41 APTT 38.8 Sec. (24.2-36.6) H 07/15/21 08:41 Sodium 139 mmol/L (137-145) 07/16/21 04:14 Potassium 3.1 mmol/L (3.6-5.0) L 07/16/21 04:14 Chloride 101.6 mmol/L (98-107) 07/16/21 04:14 Carbon Dioxide 23 mmol/L (22-30) 07/16/21 04:14 Anion Gap 18 mmol/L 07/16/21 04:14 BUN 7 mg/dL (7-17) 07/16/21 04:14 Creatinine 0.6 mg/dL (0.6-1.2) 07/16/21 04:14 Estimated GFR > 60 ml/min 07/16/21 04:14 BUN/Creatinine Ratio 12 % 07/16/21 04:14 Glucose 259 mg/dL (65-100) H 07/16/21 04:14 POC Glucose 251 mg/dL (70-105) H 07/16/21 07:28 Calcium 8.8 mg/dL (8.4-10.2) 07/16/21 04:14 Total Bilirubin 0.40 mg/dL (0.1-1.2) 07/15/21 06:46 AST 22 units/L (5-40) 07/15/21 06:46 ALT 10 units/L (7-56) 07/15/21 06:46 Alkaline Phosphatase 129 units/L (35-129) 07/15/21 06:46 Troponin T 1.350 ng/mL (0.00-0.029) H* D 07/16/21 04:14 Total Protein 7.6 g/dL (6.3-8.2) 07/15/21 06:46 Albumin 4.5 g/dL (3.9-5) 07/15/21 06:46 Albumin/Globulin Ratio 1.5 % 07/15/21 06:46 Triglycerides 131 mg/dL (2-149) 07/15/21 06:46 Cholesterol 211 mg/dL (50-199) H 07/15/21 06:46 LDL Cholesterol Direct 155 mg/dL (50-130) H 07/15/21 06:46 HDL Cholesterol 40 mg/dL (40-59) 07/15/21 06:46 Cholesterol/HDL Ratio 5.27 % 07/15/21 06:46 [place]/IV: Voiding Method Bedpan Active Medications - Current Medications Current Medications: Generic Name Dose Route Start Last Admin Trade Name Freq PRN Reason Stop Dose Admin Acetaminophen 650 mg 07/15/21 14:00 Acetaminophen 325 Mg Tab PO Q4H PRN Pain MILD(1-3)/Fever >100.5/CHING Aspirin 81 mg 07/16/21 10:00 07/16/21 09:37 Aspirin Ec 81 Mg Tab PO 81 mg QDAY MONICA Administration Atorvastatin Calcium 40 mg 07/15/21 22:00 07/15/21 23:27 Atorvastatin 40 Mg Tab PO 40 mg QHS MONICA Administration Dextrose 50 ml 07/15/21 14:00 Dextrose 50% In Water (25gm) 50 Ml Syringe IV Q30MIN PRN Hypoglycemia Protocol Nitroglycerin/Dextrose 50 mg in 250 mls @ 3 mls/hr 07/15/21 10:30 07/16/21 07:45 Tridil Drip 50mg/250ml IV 0 mcg/min TITR MONICA 0 mls/hr Infusion 10 MCG/MIN Insulin Human Regular 0 units 07/15/21 14:00 07/16/21 09:20 Insulin Regular, Human 100 Units/1 Ml SUB-Q 4 units Q6H MONICA Administration Protocol Isosorbide Mononitrate 30 mg 07/16/21 10:00 07/16/21 10:12 Isosorbide Mononitrate Er 30 Mg Tab PO 30 mg QDAY MONICA Administration Losartan Potassium 50 mg 07/15/21 13:00 07/16/21 09:37 Losartan 50 Mg Tab PO 50 mg QDAY MONICA Administration Metoprolol Tartrate 75 mg 07/16/21 11:00 07/16/21 10:31 Metoprolol Tartrate 25 Mg Tab PO 75 mg BID MONICA Administration Ondansetron HCl 4 mg 07/15/21 14:30 Ondansetron 4 Mg/2 Ml Inj IV Q8HR PRN Nausea And Vomiting Oxycodone/Acetaminophen 1 tab 07/15/21 14:30 Oxycodone /Acetaminophen 5-325mg Tab PO Q6H PRN Pain, Moderate (4-6) Pantoprazole Sodium 40 mg 07/16/21 10:00 07/16/21 10:12 Pantoprazole 40 Mg Tab PO 40 mg QDAC MONICA Administration Senna 8.6 mg 07/15/21 22:00 07/16/21 10:08 Sennosides 8.6 Mg Tab PO Not Given Q12HR MONICA Sodium Chloride 10 ml 07/15/21 22:00 07/16/21 10:30 Sodium Chloride 0.9% 10 Ml Flush Syringe IV 10 ml BID MONICA Administration Sodium Chloride 10 ml 07/15/21 14:00 Sodium Chloride 0.9% 10 Ml Flush Syringe IV PRN PRN LINE FLUSH Ticagrelor 90 mg 07/16/21 10:00 07/16/21 09:37 Ticagrelor 90 Mg Tab PO 90 mg BID MONICA Administration
[2021-07-17 06:02] LABS: Basophils # (Auto) 0.1 K/mm3 (0.0-0.1); Basophils % (Auto) 0.5 % (0.0-1.8); Eosinophils # (Auto) 0.4 K/mm3 (0.0-0.4); Eosinophils % (Auto) 3.5 % (0.0-4.3); Hematocrit 36.1 % (30.3-42.9); Hemoglobin 12.1 gm/dl (10.1-14.3); Lymphocytes # (Auto) 4.4 K/mm3 (1.2-5.4); Lymphocytes % (Auto) 34.4 % (13.4-35.0); Mean Corpuscular HGB Conc 33 % (30-34); Mean Corpuscular Volume 87 fl (79-97); Monocytes # (Auto) 1.2 K/mm3 (0.0-0.8); Monocytes % (Auto) 9.3 % (0.0-7.3); Platelet Count 204 K/mm3 (140-440); Red Blood Count 4.15 M/mm3 (3.65-5.03); Red Cell Distribution Width 13.9 % (13.2-15.2)
[2021-07-17] MEDS: INSULIN REGULAR, HUMAN 100 UNITS/1 ML SUB-Q SCH ×2 (06:07→10:01)
[2021-07-17 06:22] LABS: Blood Urea Nitrogen 7 mg/dL (7-17); Calcium 8.5 mg/dL (8.4-10.2); Hemolysis Index 3
[2021-07-17 06:25] LABS: BUN/Creatinine Ratio 14
[2021-07-17] MEDS: PANTOPRAZOLE 40 MG TAB PO SCH (07:30)
[2021-07-17] MEDS ORDERED: POTASSIUM CHLORIDE ER 20 MEQ TAB PO NR (08:00)
[2021-07-17] MEDS ORDERED: MAGNESIUM OXIDE 400 MG TAB PO NR (08:00)
[2021-07-17 09:58] VITALS: BP 117/65
[2021-07-17] MEDS: SENNOSIDES 8.6 MG TAB PO SCH (10:05)
[2021-07-17] MEDS: TICAGRELOR 90 MG TAB PO SCH (10:05)
[2021-07-17] MEDS: LOSARTAN 50 MG TAB PO SCH (10:05)
[2021-07-17] MEDS: METOPROLOL TARTRATE 25 MG TAB PO SCH (10:05)
[2021-07-17] MEDS: ASPIRIN EC 81 MG TAB PO SCH (10:05)
--- NOTE | 2021-07-17 12:20 | Progress Note ---
Assessment and Plan 61 y/o female with CAD and vascular disease Pulm status stable. Critical care mac appears stable. Will sign off. Goal directed therapy Follow up cardiology recs post stent placement Follow up vascular surgery recs. Subjective Date of service: 07/17/21 Interval history: Successful transfer out of unit. no acute events. Objective - Constitutional Vitals: Vital Signs - 12hr 07/17/21 07/17/21 07/17/21 00:30 00:40 00:50 Temperature Pulse Rate 74 69 80 Pulse Rate [ Right Femoral] Respiratory 19 20 18 Rate Blood Pressure 146/79 156/78 134/67 O2 Sat by Pulse 96 96 Oximetry 07/17/21 07/17/21 07/17/21 01:23 04:06 04:46 Temperature 98.4 F 98.2 F 98.2 F Pulse Rate 78 81 Pulse Rate [ 78 Right Femoral] Respiratory 18 8 L 18 Rate Blood Pressure 120/53 107/52 O2 Sat by Pulse 100 94 0 L Oximetry 07/17/21 07/17/21 07:39 11:11 Temperature 98.4 F Pulse Rate 88 88 Pulse Rate [ Right Femoral] Respiratory 18 Rate Blood Pressure 117/65 O2 Sat by Pulse 98 100 Oximetry - Labs CBC & Chem 7: 07/17/21 04:45 07/17/21 04:45 Labs: Abnormal lab results 07/16/21 07/16/21 07/17/21 Range/Units 15:55 21:21 02:39 WBC (4.5-11.0) K/mm3 [place] % (Auto) (0.0-7.3) % Cross # (Auto) (0.0-0.8) K/mm3 Potassium (3.6-5.0) mmol/L Creatinine (0.6-1.2) mg/dL Glucose (65-100) mg/dL POC Glucose 214 H 204 H 162 H (70-105) mg/dL Magnesium (1.7-2.3) mg/dL 07/17/21 07/17/21 Range/Units 04:45 04:45 WBC 12.8 H (4.5-11.0) K/mm3 [place] % (Auto) 9.3 H (0.0-7.3) % Cross # (Auto) 1.2 H (0.0-0.8) K/mm3 Potassium 3.4 L (3.6-5.0) mmol/L Creatinine 0.5 L (0.6-1.2) mg/dL Glucose 154 H (65-100) mg/dL POC Glucose (70-105) mg/dL Magnesium 1.60 L (1.7-2.3) mg/dL Medications & Allergies - Medications Allergies/Adverse Reactions: Allergies No Known Allergies Allergy (Verified 07/15/21 05:28) Active Medications: Generic Name Dose Route Start Last Admin Trade Name Freq PRN Reason Stop Dose Admin Acetaminophen 650 mg 07/15/21 14:00 Acetaminophen 325 Mg Tab PO Q4H PRN Pain MILD(1-3)/Fever >100.5/CHING Aspirin 81 mg 07/16/21 10:00 07/17/21 10:05 Aspirin Ec 81 Mg Tab PO 81 mg QDAY MONICA Administration Atorvastatin Calcium 40 mg 07/15/21 22:00 07/16/21 21:23 Atorvastatin 40 Mg Tab PO 40 mg QHS MONICA Administration Dextrose 50 ml 07/15/21 14:00 Dextrose 50% In Water (25gm) 50 Ml Syringe IV Q30MIN PRN Hypoglycemia Protocol Insulin Human Regular 0 units 07/15/21 14:00 07/17/21 10:01 Insulin Regular, Human 100 Units/1 Ml SUB-Q Not Given Q6H MONICA Protocol Isosorbide Mononitrate 30 mg 07/16/21 10:00 07/17/21 10:05 Isosorbide Mononitrate Er 30 Mg Tab PO 30 mg QDAY MONICA Administration Losartan Potassium 50 mg 07/15/21 13:00 07/17/21 10:05 Losartan 50 Mg Tab PO 50 mg QDAY MONICA Administration Metoprolol Tartrate 75 mg 07/16/21 11:00 07/17/21 10:05 Metoprolol Tartrate 25 Mg Tab PO 75 mg BID MONICA Administration Ondansetron HCl 4 mg 07/15/21 14:30 Ondansetron 4 Mg/2 Ml Inj IV Q8HR PRN Nausea And Vomiting Oxycodone/Acetaminophen 1 tab 07/15/21 14:30 Oxycodone /Acetaminophen 5-325mg Tab PO Q6H PRN Pain, Moderate (4-6) Pantoprazole Sodium 40 mg 07/16/21 10:00 07/17/21 07:30 Pantoprazole 40 Mg Tab PO Not Given QDAC MONICA Senna 8.6 mg 07/15/21 22:00 07/17/21 10:05 Sennosides 8.6 Mg Tab PO 8.6 mg Q12HR MONICA Administration Sodium Chloride 10 ml 07/15/21 22:00 07/17/21 10:06 Sodium Chloride 0.9% 10 Ml Flush Syringe IV 10 ml BID MONICA Administration Sodium Chloride 10 ml 07/15/21 14:00 Sodium Chloride 0.9% 10 Ml Flush Syringe IV PRN PRN LINE FLUSH Ticagrelor 90 mg 07/16/21 10:00 07/17/21 10:05 Ticagrelor 90 Mg Tab PO 90 mg BID MONICA Administration HEART Score - HEART Score EKG: Normal Age: 45-65 Risk factors: > 3 risk factors or hx of atherosclerotic disease Troponin: Troponin T 1.350 ng/mL (0.00-0.029) H* D 07/16/21 04:14 Troponin: > 3x normal limit - Critical Actions Critical Actions: >7 pts:50-65% risk of adverse cardiac event. Early invasive measures
--- NOTE | 2021-07-17 13:33 | Discharge Summary ---
Providers - Providers Date of Admission: 07/15/21 08:10 Date of discharge: 07/17/21 Attending physician: LUPIS TRAVIS MD 07/15/21 Consult to Cardiac Rehabilitation [CONS] Routine Reason For Exam: post pci 07/15/21 08:13 Consult to Physician [CONS] Stat Comment: Consulting Provider: BEATRICE EASLEY Physician Instructions: Reason For Exam: NSTEMI 07/15/21 13:27 Consult to Dietitian/Nutrition [CONS] Routine Physician Instructions: Reason For Exam: Reason for Consult: Poor oral intake 07/15/21 14:37 Consult to Physician [CONS] Routine Comment: Consulting Provider: PATRICIA ORTIZ Physician Instructions: Spoke to Clarise/Sophie Reason For Exam: Brachiocephalic stenosis Primary care physician: BAKER HEAD Hospitalization Reason for admission: Chest pain Condition: Serious Pertinent studies: Reviewed. Procedures: Left heart catherization Hospital course: The patient is a 61-year-old female with past medical history of hypertension, diabetes, hyperlipidemia, hypothyroidism on levothyroxine, and morbid obesity who presented with acute chest pain that was admitted for management of ACS (acute coronary syndrome). The patient was evaluated by cardiology and underwent left heart catheterization. The patient was found to have 100% subacute occlusion of the mid circumflex requiring 1 stent. The patient tolerated the procedure well. The only left heart cath required entry into the right femoral. The patient was counseled on lifestyle changes, medication adjustments, and follow-up with cardiology in 1 week. The patient expressed understanding. The patient is discharged home. Disposition: 01 HOME / SELF CARE / HOMELESS Final Discharge Diagnosis (Prints w/discharge instructions): NSTEMI; stented coronary artery; coronary artery disease Time spent for discharge: 45 min Core Measure Documentation - Palliative Care Palliative Care/ Comfort Measures: Not Applicable - Core Measures Any of the following diagnoses?: acute [place] - VTE Discharge Requirements Deep Vein Thrombosis/Pulmonary Embolism Present on Admission: No Has pt received <5 days of overlap therapy or INR<2.0: No (Not indicated) Anticoagulant overlap therapy prescribed at discharge: No Contraindication No Overlap Therapy order at DC: Not Indicated - Acute [place] Discharge Requirements Aspirin at discharge: Yes CATA/ARB for LVSD if EF <40%: Yes Beta link at discharge: Yes Statin for LDL = or >100 mg/dl on DC: Yes - Heart Failure Discharge Requirements CATA/ARB for LVSD if EF <40%: Yes Beta link at discharge: Yes - Stroke Discharge Requirements Statin for LDL = or >70 mg/dl on DC: Not Applicable Reason for no statin on DC: Not Indicated Anticoag for atrial fib/atrial flutter: Not Applicable Reason for no anticoag for AF/F on DC: Not Indicated Antithrombotic for ischemic stroke: No Reason for no antithrombotic on DC: Not Indicated Exam - Constitutional Vitals: Temp Pulse Resp BP Pulse Ox 98.4 F 88 18 117/65 100 07/17/21 07:39 07/17/21 11:11 07/17/21 07:39 07/17/21 07:39 07/17/21 11:11 General appearance: Present: no acute distress, well-nourished, obese - EENT Eyes: Present: PERRL, EOM intact ENT: hearing intact, clear oral mucosa, dentition normal - Neck Neck: Present: supple, normal ROM - Respiratory Respiratory effort: normal - Cardiovascular Rhythm: regular Heart Sounds: Present: S1 & S2 - Extremities Extremities: no ischemia, pulses intact, pulses symmetrical, No edema, normal temperature, normal color Peripheral Pulses: within normal limits - Abdominal General gastrointestinal: Present: soft, non-tender, non-distended, normal bowel sounds Female genitourinary: Present: deferred - Rectal Rectal Exam: deferred - Integumentary Integumentary: Present: clear, warm, dry - Musculoskeletal Musculoskeletal: strength equal bilaterally - Psychiatric Psychiatric: appropriate mood/affect, intact judgment & insight, memory intact, cooperative - Neurologic Neurologic: CNII-XII intact, moves all extremities - Allied Health Allied health notes reviewed: nursing Plan Health Concerns: The patient should return back to the emergency room if they experience any of the following: Chest pain/pressure, shortness of breath, inability to lie flat, confusion, worsening abdominal pain, or inability to produce urine. Assessment: Patient discharging home. Follow up with: EMILIE KITCHEN MD [Primary Care Provider] - 3-5 Days BEATRICE EASLEY MD [Staff Physician] - 7 Days Prescriptions: AtorvaSTATin [Lipitor] 40 mg PO QHS #30 tablet Losartan [Cozaar] 50 mg PO QDAY #30 tablet Aspirin EC [Halfprin EC] 81 mg PO QDAY #30 tablet ISOSORBIDE MONOnitrate [Imdur ER] 30 mg PO QDAY #30 tablet Metoprolol [Lopressor TAB] 75 mg PO BID #30 tablet Clopidogrel [Plavix] 75 mg PO QDAY #30 tablet
--- NOTE | 2021-07-18 10:50 | Electrocardiograph Report ---
[facility] Test Date: 2021-07-15 Test Time: 15:02:08 Pat Name: PATTI BARRERA Department: Room: A454 Gender: F Director Specialty: ESCOBAR : 1960 Requested By: BEATRICE EASLEY Order Number: [id number] Reading MD: Jayson Han Measurements Intervals [place] Rate: 75 P: 44 [place]: 157 QRS: 25 QRSD: 79 T: 61 QT: 417 QTc: 466 Interpretive Statements Sinus rhythm Compared to ECG 07/15/2021 05:17:58 Sinus tachycardia no longer present Electronically Signed On 07-18-2021 10:50:27 EDT by Jayson Han
--- NOTE | 2021-07-18 10:55 | Electrocardiograph Report ---
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
--- NOTE | 2021-07-18 10:57 | Electrocardiograph Report ---
[facility] Test Date: 2021-07-16 Test Time: 11:14:13 Pat Name: PATTI BARRERA Department: Room: A454 Gender: F Casing Trimmer: MITUL : 1960 Requested By: JOE MIRANDA Order Number: [id number] Reading MD: Jayson Han Measurements Intervals [place] Rate: 73 P: 31 [place]: 168 QRS: 11 QRSD: 88 T: 37 QT: 402 QTc: 445 Interpretive Statements Sinus rhythm Compared to ECG 07/16/2021 07:54:45 No significant changes Electronically Signed On 07-18-2021 10:56:43 EDT by Jayson Han
== END 2021-07-17 14:05 | disposition home or self-care (01) | DRG 246 ==
LOC: ED 05:18 → CC1 08:10 → 4A 07-17 00:22
PROVIDERS: ADMIT Student in an Organized Health Care Education/Training Program; ATTEND Student in an Organized Health Care Education/Training Program
PROC: 027034Z Dilation of Coronary Artery, One Artery with Drug-eluting Intraluminal Device, Percutaneous Approach (ICD-10-PCS; principal; 2021-07-15)
PROC: 4A023N7 Measurement of Cardiac Sampling and Pressure, Left Heart, Percutaneous Approach (ICD-10-PCS; 2021-07-15)
PROC: B2111ZZ Fluoroscopy of Multiple Coronary Arteries using Low Osmolar Contrast (ICD-10-PCS; 2021-07-15)
PROC: B2151ZZ Fluoroscopy of Left Heart using Low Osmolar Contrast (ICD-10-PCS; 2021-07-15)
DX: I21.4 Non-ST elevation (NSTEMI) myocardial infarction (principal); I50.31 Acute diastolic (congestive) heart failure; Z68.41 Body mass index [BMI] 40.0-44.9, adult; E66.01 Morbid (severe) obesity due to excess calories; I25.10 Atherosclerotic heart disease of native coronary artery without angina pectoris; I10 Essential (primary) hypertension; E11.9 Type 2 diabetes mellitus without complications; E78.5 Hyperlipidemia, unspecified; K21.9 Gastro-esophageal reflux disease without esophagitis; E78.00 Pure hypercholesterolemia, unspecified; E03.9 Hypothyroidism, unspecified; Z79.899 Other long term (current) drug therapy; Z83.3 Family history of diabetes mellitus; Z82.49 Family history of ischemic heart disease and other diseases of the circulatory system; Z71.3 Dietary counseling and surveillance; Z87.891 Personal history of nicotine dependence
CPT/HCPCS: 36415; 71045; 71046; 80048; 80053; 80061; 82962; 83735; 84100; 84484; 85014; 85018; 85025; 85049; 85610; 85730; 92928; 93005; 93306; 93454; G0378; C1725; C1760; C1769; C1874; C1887; C1894; C9600; J1170; J1644; J1815; J2250; J2405; J3010; J3246; J7030; J7040; Q9967